=== PATIENT | female | born 2000 | race Caucasian/White ===

== ENCOUNTER 2022-01-29 20:58 | Emergency (ER) | payer BC, SELFPAY ==
[2022-01-29 21:23] VITALS: BP 142/75; PULSE 66; RESP 15; O2SAT 99
--- NOTE | 2022-01-29 21:27 | ECG_ITS ---
Measurements Intervals [place] Rate: 73 P: 12 VA: 139 QRS: 36 QRSD: 93 T: 5 QT: 390 QTc: 431 Interpretive Statements SINUS RHYTHM WITH SINUS ARRHYTHMIA RIGHT VENTRICULAR CONDUCTION DELAY NONSPECIFIC T-WAVE ABNORMALITY Electronically Signed On 01-30-2022 11:11:33 CDT by Raffi Valerio M.D.
--- NOTE | 2022-01-29 21:28 | ED.GENADULT ---
HPI - General Adult General Chief complaint: Overdose Stated complaint: INGESTION Time Seen by Provider: 01/29/22 21:14 Source: patient, EMS and RN notes reviewed Mode of arrival: EMS Limitations: no limitations History of Present Illness HPI narrative: 21-year-old female with history of anxiety and depression presents to emergency department for evaluation after overdose unknown intent. Patient states that she used to see her counselor but since starting college she has not been seeing her counselor the last few months. Patient states over the course of she did have some increased stresses related to family and ex-boyfriend. Patient states that this added upon the stresses of finals was temporarily too much for her to handle. Patient states that she acted irrationally and took approximately 3 Tylenol, 2 Lexapro and 2 hydrocodone. Patient states that approximately 10 minutes after taking medications she told her friends/roommates and they did induce emesis, notify the RNA and ultimately called 911. Patient states she is unsure of why she took the medications but states she was not thinking clearly. Patient does not suspect that she was trying to hurt herself. Patient denies any alcohol intake. Patient denies any other drug use including marijuana. Patient denies any homicidal suicidal ideation. Related Data Allergies Allergy/AdvReac Type Severity Reaction Status Date / Time No Known Allergies Allergy Verified 01/29/22 22:28 Review of Systems Review of Systems: CONSTITUTIONAL: Denies fever, chills, or sweats. EYES: Denies visual changes, redness, or discharge. ENT: Denies rhinorrhea, congestion, sore throat, or otalgia. CARDIOVASCULAR: Denies chest pain, palpitations, or edema. RESPIRATORY: Denies cough or dyspnea. GASTROINTESTINAL: Denies abdominal pain, nausea, vomiting, or diarrhea. GENITOURINARY: Denies dysuria or hematuria. SKIN: Denies rash or itching. MUSCULOSKELETAL: Denies back pain, joint pain, or myalgia. NEUROLOGIC: Denies headache, numbness, or weakness. PSYCHIATRIC: History of anxiety and depression PMFSH Social History Social History Substance use type: does not use Exam Narrative: APPEARANCE: Well appearing, no pain, no distress, well-nourished. HEAD: normocephalic, atraumatic. EYES: PERRLA/EOMI, conjunctivae clear. NOSE: Normal no drainage THROAT: Pharynx clear, no exudate. NECK: Supple. No adenopathy, no masses. RESPIRATORY: Airway patent, respirations nonlabored. Clear to auscultation bilaterally, no rales, rhonchi, wheezing. CARDIOVASCULAR: Regular rate and rhythm without murmurs rubs or gallops. ABDOMINAL: Soft, nontender, nondistended, normal bowel sounds MUSCULOSKELETAL: Moves all extremities. Strength/ROM intact, No edema, No calf tenderness. NEURO: Alert. Cranial nerves II through XII intact. Grossly intact SKIN: Warm, dry. Normal Color Course Reevaluation(s) Reevaluation #1: Patient's repeat Tylenol level was below detectable levels. Poison control was reconsulted and they have medically cleared her at this point. Patient is medically cleared for evaluation by the crisis counselor. Patient is medically cleared for inpatient psychiatric placement as needed. Vital Signs Vital signs: Vital Signs Pulse Rate 66 01/29/22 21:23 Respiratory Rate 15 01/29/22 21:23 Blood Pressure 142/75 H 01/29/22 21:23 Pulse Oximetry 99 01/29/22 21:23 Pulse Rate 66 01/29/22 21:23 Respiratory Rate 15 01/29/22 21:29 Blood Pressure 142/75 H 01/29/22 21:23 Pulse Oximetry 99 01/29/22 21:23 Medical Decision Making Vital Signs Vital Signs: Vital Signs Pulse Rate 66 01/29/22 21:23 Respiratory Rate 15 01/29/22 21:23 Blood Pressure 142/75 H 01/29/22 21:23 Pulse Oximetry 99 01/29/22 21:23 Pulse Rate 66 01/29/22 21:23 Respiratory Rate 15 01/29/22 21:29 Blood Pressure 142/75 H 01/29/22 21:23 Pulse Oximetry 99 01/29/22 21:23 Lab Data
[2022-01-29 21:29] VITALS: RESP 15
--- NOTE | 2022-01-29 21:50 | PC.NURSE ---
Pt had stated to both baker pastry, EMS, and ERP that she was not trying to harm herself, even made the comment I think that if i were really trying to harm myself I would have taken more pills. pt deemed low SI risk a this time, no sitter placed at this time and items not removed from room at this time. Friends from school at bedside to visit. EMS did bring pill bottles in, RN tagged meds with pt sticker and locked in Charge nurse safe.
[2022-01-29 21:53] LABS: Basophils Absolute Auto 0.1 K/mm3 (0.0-0.1); Basophils Percent Auto 0.6 % (0.2-1.2); Eosinophils Absolute Auto 0.1 K/mm3 (0-0.3); Eosinophils Percent Auto 0.7 % (0-4.4); Hematocrit 37.6 % (37.0-47.0); Hemoglobin 13.1 g/dL (12.0-15.0); Immature Granulocyte Absolute 0.02 K/mm3 (0.00-0.031); Immature Granulocyte Percent A 0.2 % (0-0.5); Lymphocytes Percent Auto 42.9 % (18.3-44.2); Mean Corpuscular HGB Conc 34.8 g/dl (32-36); Mean Corpuscular Volume 86.2 fl (80-100); Mean Platelet Volume 9.7 fl (7.4-10.4); Monocytes Absolute Auto 0.8 K/mm3 (0.1-0.6); Monocytes Percent Auto 8.9 % (2.6-8.5); Neutrophils Absolute Auto 3.9 K/mm3 (1.3-6.7); Neutrophils Percent Auto 46.7 % (45.5-73.1); Platelet Count Result 339 k/mm3 (150-375); Red Blood Count 4.36 M/mm3 (4.2-5.4); Red Cell Distribution Width 12.3 % (11.5-14.5); White Blood Count 8.4 K/mm3 (4.5-10.0)
[2022-01-29 22:02] LABS: Acetaminophen 23 ug/mL (10-30); Ethanol < 10 mg/dL (<10); Salicylate < 1.0 mg/dL (2-20)
[2022-01-29 22:03] LABS: Alanine Aminotransferase 15 U/L (4-35); Albumin Level 4.4 g/dL (3.7-5.6); Alkaline Phosphatase 92 U/L (45-116); Anion Gap 10 mmol/L (8-16); Aspartate Amino Transferase 28 U/L (14-36); Bilirubin,Total 0.1 mg/dL (0.2-1.3); Blood Urea Nitrogen 12 mg/dL (8-21); Calcium 9.2 mg/dL (8.9-10.7); Carbon Dioxide 20 mmol/L (22-30); Chloride 105 mmol/L (98-107); Estimated CRCL calculation 120 ml/min; Estimated Glomerular Filt Rate > 60; Glucose 93 mg/dL (65-110); Magnesium 1.8 mg/dL (1.6-2.3); Potassium 3.6 mmol/L (3.4-5.0); Sodium 135 mmol/L (134-143)
[2022-01-29 22:34] LABS: Add Urine Microscopic? NO; Appearance Urine Clear (Clear); Bilirubin Urine Negative (Negative); Blood Urine Negative (Negative); Color Urine Yellow (Yellow); Glucose Urine UA Negative (Negative); Ketones Urine Negative (Negative); Leukocyte Esterase Ur Negative LEU/UL (Negative); Nitrate Urine Negative (Negative); Protein Urine Negative (Negative); Urobilinogen Urine 0.2 mg/dL (<2.0)
[2022-01-29 22:47] LABS: Amphetamine Screen Urine Negative (Negative); Barbiturate Screen Urine Negative (Negative); Benzodiazepines Screen Urine Negative (Negative); Cannabinoid Screen Urine Negative (Negative); Cocaine Screen Urine Negative (Negative); Methadone Screen Urine Negative (Negative); Opiate Screen Urine Positive (Negative); Phencyclidine Screen Urine Negative (Negative)
--- NOTE | 2022-01-29 23:03 | PC.NURSE ---
POISON CONTROL CONTACTED AT THIS TIME. REPEAT TYLENOL LAB AT 0030 ( 4 HOURS POST INGESTION). LEXAPRO PEAK IS 5 HOURS. TACHYCARDIC AND LETHARGY - TREAT WITH BENZOIDS AND NARCAN IF NEEDED.
--- NOTE | 2022-01-29 23:25 | PC.NURSE ---
EDP aware patient is low risk. No sitter needed. Patient is awake and alert. [place] officer brought in the notebook with goodbye letters inside. Patient aware we have it and patient states, I do want help
[2022-01-30 00:42] LABS: Acetaminophen < 10 ug/mL (10-30)
[2022-01-30] MEDS: PANTOPRAZOLE SOD SESQUIHYDRATE 20 MG TAB PO (01:20)
--- NOTE | 2022-01-30 01:25 | PC.NURSE ---
POISON CONTROL NOTIFIED OF REPEAT TYLENOL LEVEL RESULTS. CASE # [id number], CLOSED AT THIS TIME.
--- NOTE | 2022-01-30 01:26 | PC.NURSE ---
PER ERP Kayla MERA PT MEDICALLY CLEAR AT THIS TIME.
--- NOTE | 2022-01-30 01:28 | PC.NURSE ---
MISAEL AT [facility] PT IS OVER 20 AND SELF PAY SO DOES NOT QUALIFY FOR OUR SERVICES AT THIS TIME.
--- NOTE | 2022-01-30 01:32 | PC.NURSE ---
CALEB AT CRISIS NOTIFIED AND WILL SEND SOMEONE OUT TO EVALUATE THE PATIENT MIGUELANGEL.
[2022-01-30] MEDS: ONDANSETRON HCL ODT 4 MG TABLET PO (01:54)
[2022-01-30 05:05] LABS: SARS-CoV-2 RNA PCR Negative
--- NOTE | 2022-01-30 07:05 | PC.NURSE ---
report received from elaine cristina. pt sleeping on stretcher. no distress noted.
--- NOTE | 2022-01-30 08:35 | PC.NURSE ---
pritesh from [facility] pt accepted under care of dr. wilson
--- NOTE | 2022-01-30 08:40 | PC.NURSE ---
[facility] accepted transfer to [place] [facility] 10:30
[2022-01-30 08:43] VITALS: BP 113/72; PULSE 59; RESP 16; O2SAT 98
--- NOTE | 2022-01-30 08:54 | PC.NURSE ---
[facility] no ordered
--- NOTE | 2022-01-30 10:08 | PC.NURSE ---
[facility] updated eta to 12p-12:30p [facility] accepted transfer to [place] eta 10:30 trip # [id number] [facility] cancelled
--- NOTE | 2022-01-30 10:41 | PC.NURSE ---
at 10:17 updated eta for [place] 11:30-11:45
[2022-01-30 12:00] VITALS: BP 124/83; PULSE 76; RESP 16; O2SAT 98
== END 2022-01-30 12:00 ==
PROVIDERS: Emergency Medicine; Emergency Provider Emergency Medicine
DX: T39.1X2A Poisoning by 4-Aminophenol derivatives, intentional self-harm, initial encounter (principal); T43.222A Poisoning by selective serotonin reuptake inhibitors, intentional self-harm, initial encounter; T40.2X2A Poisoning by other opioids, intentional self-harm, initial encounter; F41.9 Anxiety disorder, unspecified; F32.A Depression, unspecified; Z20.822 Contact with and (suspected) exposure to COVID-19; I45.9 Conduction disorder, unspecified
CPT/HCPCS: 36415; 80053; 80307; 81003; 83735; 84443; 85025; 93005; 99285; A9270; C9803; U0003; U0005